=== PATIENT | male | born 1955 | race Caucasian/White ===

== ENCOUNTER → 2023-05-13 06:32 | Day surgery (SDC) | payer OTHER, SELFPAY ==
[2023-05-13 09:55] LABS: Glucose - Point of Care 111 mg/dl (70-99)
== END ==
LOC: GI 06:32
PROVIDERS: ATTENDING PHYSICIAN Internal Medicine Gastroenterology; FAMILY PHYSICIAN Family Medicine
DX: K62.5 Hemorrhage of anus and rectum (principal); R19.5 Other fecal abnormalities; K64.8 Other hemorrhoids; K31.7 Polyp of stomach and duodenum; R12 Heartburn; D12.2 Benign neoplasm of ascending colon; D12.3 Benign neoplasm of transverse colon
CPT/HCPCS: 45385; 43239; 88305; 82962

== ENCOUNTER 2024-05-02 06:16 | Day surgery (SDC) | payer OTHER, SELFPAY ==
[2024-05-02 09:08] LABS: Glucose - Point of Care 128 mg/dl (70-99)
== END 2024-05-02 11:06 | disposition home or self-care (01) ==
LOC: GI 06:16
PROVIDERS: ATTENDING PHYSICIAN Internal Medicine Gastroenterology
DX: Z09 Encounter for follow-up examination after completed treatment for conditions other than malignant neoplasm (principal); K57.30 Diverticulosis of large intestine without perforation or abscess without bleeding; K64.8 Other hemorrhoids; Z86.0101 Personal history of adenomatous and serrated colon polyps; Z98.890 Other specified postprocedural states
CPT/HCPCS: 45378; 82962